=== PATIENT | male | born 1975 | race Caucasian/White ===

== ENCOUNTER 2018-06-01 14:04 | Emergency (ER) | payer BC ==
[2018-06-01] MEDS: NEOMY/BACITR/POLYMYXIN OINT PACKET. TP (14:35)
== END 2018-06-01 14:43 | disposition home or self-care (01) ==
LOC: ER 14:04
DX: S91.302A Unspecified open wound, left foot, initial encounter (principal); S91.301A Unspecified open wound, right foot, initial encounter; X58.XXXA Exposure to other specified factors, initial encounter; Y93.89 Activity, other specified; Y92.89 Other specified places as the place of occurrence of the external cause; Y99.8 Other external cause status
CPT/HCPCS: 99283

== ENCOUNTER 2018-07-14 08:54 | Emergency (ER) | payer BC ==
[~2018-07-14] VITALS: Ht 180.3 cm; Wt 108.9 kg
[~2018-07-14 08:54] MED LIST: MUPI15CR TP; SULF1TAB24 PO
[2018-07-14 09:05] VITALS: BP 175/98
[2018-07-14] MEDS ORDERED: PRED20TA PO (09:30)
--- NOTE | 2018-07-14 09:31 | PHYS DOC ---
Past Medical History Past Medical History: Hypertension Past Surgical History: No Surgical History Alcohol Use: Rarely Drug Use: None Adult General Chief Complaint Chief Complaint: SKIN RASH/ABSCESS HPI HPI Patient is a 42 year old male who presents to the emergency room with complaints of itchy rash all over his bilateral upper extremities, trunk and back for the last 2 weeks. He denies any new medications, detergents, perfumes, body washes, or foods. He states that the only thing that was done differently is that he mowed a friend's yard. Pt denies any shortness of breath, wheezing, or difficulty breathing. Pt states he has not taken any medication or applied any topical medications for relief of his symptoms. Pt denies any recent travel. Review of Systems Review of Systems Constitutional: Denies fever or chills [] Eyes: Denies change in visual acuity, redness, or eye pain [] HENT: Denies nasal congestion or sore throat [] Respiratory: Denies cough, wheezing, or shortness of breath [] GI: Denies abdominal pain, nausea, or vomiting Integument: reports rash all over trunk, back, and upper extremities that is itchy Neurologic: Denies headache, focal weakness or sensory changes [] All other systems were reviewed and found to be within normal limits, except as documented in this note. Allergies Allergies Allergies Coded Allergies Type Severity Reaction Last Updated Verified No Known Drug Allergies 06/01/18 No Physical Exam Physical Exam Constitutional: Well developed, well nourished, no acute distress, non-toxic appearance. [] HENT: Normocephalic, atraumatic, bilateral external ears normal, oropharynx moist, no oral exudates, nose normal. [] Eyes: PERRLA, conjunctiva normal, no discharge. [] Neck: Normal range of motion, no tenderness, supple, no stridor. [] Cardiovascular:Heart rate regular rhythm, no murmur [] Lungs & Thorax: Bilateral breath sounds clear to auscultation [] Skin: Warm, dry, scattered red, maculopapular rash noted to bilateral upper extremities, chest, abdomen, and back consistent with contact dermatitis. Extremities: No cyanosis, no clubbing, ROM intact Neurologic: Alert and oriented X 3, normal motor function, normal sensory function, no focal deficits noted. [] Psychologic: Affect normal, judgement normal, mood normal. [] Current Patient Data Vital Signs Vital Signs Date Time Temp Pulse Resp B/P (MAP) Pulse Ox O2 Delivery O2 Flow Rate FiO2 07/14/18 09:05 97.7 92 16 175/98 (123) 98 Room Air 97.7 EKG EKG [] Radiology/Procedures Radiology/Procedures [] Course & Med Decision Making Course & Med Decision Making Pertinent Labs and Imaging studies reviewed. (See chart for details) Contact dermatitis, prescription for prednisone taper written. Patient verbalized an understanding of home care, medications, follow-up, and return to ED instructions and was in agreement with the plan of care. [] Dragon Disclaimer Dragon Disclaimer This electronic medical record was generated, in whole or in part, using a voice recognition dictation system. Departure Departure Impression: Primary Impression: Contact dermatitis Disposition: HOME, SELF-CARE Condition: STABLE Referrals: NO PCP (PCP) Patient Instructions: Contact Dermatitis, [id number] Additional Instructions: Fill prescription and use as directed. Recommend [id number] Benadryl and [id number] Benadryl itch relief cream or calamine lotion for relief of itching. Follow up with your primary care doctor in 1-2 days, return to the ER if symptoms worsen. Scripts Prednisone (PREDNISONE) 20 Mg Tablet 1 TAB PO DAILY, #15 TAB take 2 tabs x3 days, then 1.5 tabs x3 days, then 1 tab x3 days, then 0.5 tabs x3 days. Prov: ORLY LYNNE APRN 07/14/18 Problem Qualifiers Primary Impression: Contact dermatitis Contact dermatitis type: unspecified Contact dermatitis trigger: unspecified trigger Qualified Codes: L25.9 - Unspecified contact dermatitis, unspecified cause ORLY LYNNE APRN Jul 14, 2018 09:31
== END 2018-07-14 09:35 | disposition home or self-care (01) ==
LOC: ER 08:54
DX: L25.9 Unspecified contact dermatitis, unspecified cause (principal); I10 Essential (primary) hypertension
CPT/HCPCS: 99283

== ENCOUNTER 2019-09-01 09:22 | Emergency (ER) | payer BC ==
[~2019-09-01] VITALS: Ht 180.3 cm; Wt 130.2 kg
[~2019-09-01 09:22] MED LIST changes: +PRED20TA PO
[2019-09-01] MEDS ORDERED: DIPHTH,PERTUSS(ACELL),TET TOX 0.5 ML DISP.SYRIN. VAX IM ONE (10:30)
[2019-09-01] MEDS ORDERED: cefTRIAXone IM 1 GM VIAL IM ONE (10:30)
[2019-09-01] MEDS ORDERED: HYDROcodone/APAP 5/325MG 1 TAB TABLET PO ONE (10:30)
[2019-09-01] MEDS ORDERED: LIDOCAINE 1% PF 2 ML VIAL. INJ ONE (10:30)
[2019-09-01 11:00] VITALS: BP 156/95
--- NOTE | 2019-09-01 11:01 | PHYS DOC ---
Past Medical History Past Medical History: Hypertension Past Surgical History: No Surgical History Alcohol Use: Rarely Drug Use: None Adult General Chief Complaint Chief Complaint: BLISTER/COLD SORE HPI HPI Patient is a 43 year old male with history of hypertension who presents to the ED today complaining of infected wounds to bilateral lower extremities. Patient states that began as an infection in between his toes, he states that progressed into wounds. Patient denies any fever. Denies any personal history of diabetes. Review of Systems Review of Systems Constitutional: Denies fever or chills [] Eyes: Denies change in visual acuity, redness, or eye pain [] HENT: Denies nasal congestion or sore throat [] Respiratory: Denies cough or shortness of breath [] Cardiovascular: No additional information not addressed in HPI [] GI: Denies abdominal pain, nausea, vomiting, bloody stools or diarrhea [] : Denies dysuria or hematuria [] Musculoskeletal: Denies back pain or joint pain [] Integument: Reports wounds to bilateral lower extremities. Neurologic: Denies headache, focal weakness or sensory changes [] Endocrine: Denies polyuria or polydipsia [] All other systems were reviewed and found to be within normal limits, except as documented in this note. Current Medications Current Medications Current Medications Medications (Trade) Dose Ordered Sig/Jorge A Start Time Stop Time Status Last Admin Dose Admin Acetaminophen/ Hydrocodone Bitart (Lortab 5/325) 2 tab 1X ONCE 09/01/19 10:30 09/01/19 10:31 DC Ceftriaxone Sodium (Rocephin Im) 1 gm 1X ONCE 09/01/19 10:30 09/01/19 10:31 DC 09/01/19 10:38 1 GM Diphtheria/ Tetanus/Acell Pertussis (Boostrix) 0.5 ml ONCE ONCE 09/01/19 10:30 09/01/19 10:31 DC 09/01/19 10:33 0.5 ML Lidocaine HCl (Xylocaine-Mpf 1% 2ml Vial) 2 ml 1X ONCE 09/01/19 10:30 09/01/19 10:31 DC 09/01/19 10:38 2 ML Allergies Allergies Allergies Coded Allergies Type Severity Reaction Last Updated Verified No Known Drug Allergies 06/01/18 No Physical Exam Physical Exam Constitutional: Well developed, well nourished, no acute distress, non-toxic appearance. [] HENT: Normocephalic, atraumatic, bilateral external ears normal, oropharynx moist, no oral exudates, nose normal. [] Eyes: PERRLA, EOMI, conjunctiva normal, no discharge. [] Neck: Normal range of motion, no tenderness, supple, no stridor. [] Cardiovascular:Heart rate regular rhythm, no murmur [] Lungs & Thorax: Bilateral breath sounds clear to auscultation [] Abdomen: Bowel sounds normal, soft, no tenderness, no masses, no pulsatile masses. [] Skin: Poor feet hygiene noted, areas in between the toes overweight and macerated consistent with fungal infection. Patient also has a couple open wounds on the left foot as well as the right foot that appears to be cellulitis, no abscess formation. There is also on open wound approximately 0.5 x 0.5 cm with surrounding 3 cm of cellulitis on the right inner lower leg. +2 bilateral pedal pulses. Full range of motion bilateral lower extremities. Cap refill less than 2 seconds bilateral toes. Back: No tenderness, no CVA tenderness. [] Extremities: No tenderness, no cyanosis, no clubbing, ROM intact, no edema. [] Neurologic: Alert and oriented X 3, normal motor function, normal sensory function, no focal deficits noted. [] Psychologic: Affect normal, judgement normal, mood normal. [] Current Patient Data Vital Signs Vital Signs Date Time Temp Pulse Resp B/P (MAP) Pulse Ox O2 Delivery O2 Flow Rate FiO2 09/01/ 09:30 97.9 95 21 167/96 (119) Room Air 97.0 97.9 EKG EKG [] Radiology/Procedures Radiology/Procedures [] Course & Med Decision Making Course & Med Decision Making Pertinent Labs and Imaging studies reviewed. (See chart for details) This is a 43-year-old male patient who presents to the ED today with a fungal infection on bilateral feet as well as a couple areas of cellulitis. Tetanus was updated. Given Rocephin 1 g in the ED. Discharged with cephalexin and Bactrim. Also given prescription for nystatin powder to use between the toes. Emphasis to this patient the importance of good feet hygiene. Follow-up with primary care doctor in one week. Dragon Disclaimer Dragon Disclaimer This electronic medical record was generated, in whole or in part, using a voice recognition dictation system. Departure Departure Impression: Primary Impression: Athlete's foot on left Additional Impressions: Athlete's foot on right Cellulitis of both lower extremities Disposition: 01 HOME, SELF-CARE Condition: STABLE Referrals: NO PCP (PCP) follow up next week Patient Instructions: Athlete's Foot, [id number], Cellulitis, [id number] Additional Instructions: You were evaluated in the emergency room for cellulitis and fungal infection to your feet. Please maintain good feet hygiene. Try and keep your feet open to air while at home and resting. Take the prescribed antibiotics as well as pain medicines as ordered. Please follow-up with your doctor in the course of next week. Scripts Cephalexin (CEPHALEXIN) 500 Mg Tablet 1 TAB PO QID, #40 TAB Prov: JULIANNA SUTHERLAND APRN 09/01/19 Sulfamethoxazole/Trimethoprim (BACTRIM 400-80 MG TABLET) 1 Each Tablet 1 TAB PO BID for 10 Days, #20 TAB 0 Refills Prov: JULIANNA SUTHERLAND APRN 09/01/19 Nystatin (NYSTATIN) 15 Gm Powder 1 FRANDY TP BID for 7 Days, #1 BOTTLE 1 Refill apply to affected area(s) Prov: JULIANNA SUTHERLAND APRN 09/01/19 Problem Qualifiers JULIANNA SUTHERLAND APRN Sep 01, 2019 11:01
[2019-09-01] MEDS ORDERED: SULF1TAB23 PO (11:04)
[2019-09-01] MEDS ORDERED: NYST15PO9 TP (11:04)
[2019-09-01] MEDS ORDERED: HYDR-3164 PO (11:04)
[2019-09-01] MEDS ORDERED: CEPH500T PO (11:04)
== END 2019-09-01 11:40 | disposition home or self-care (01) ==
LOC: ER 09:22
DX: L03.116 Cellulitis of left lower limb (principal); L03.115 Cellulitis of right lower limb; B35.3 Tinea pedis; I10 Essential (primary) hypertension
CPT/HCPCS: 90471; 90715; 96372; 99284; J0696

== ENCOUNTER 2019-12-07 20:34 | Emergency (ER) | payer BC ==
[~2019-12-07] VITALS: Ht 180.3 cm; Wt 115.0 kg
[~2019-12-07 20:34] MED LIST changes: +CEPH500T PO; +HYDR-3164 PO; +NYST15PO9 TP; +SULF1TAB23 PO
[2019-12-07 20:49] VITALS: BP 163/97
[2019-12-07] MEDS ORDERED: PENI500T PO (21:05)
--- NOTE | 2019-12-07 21:09 | PHYS DOC ---
Past Medical History Past Medical History: Hypertension Past Surgical History: No Surgical History Alcohol Use: Rarely Drug Use: None Adult General Chief Complaint Chief Complaint: DENTAL PROBLEM HPI HPI Patient is a 44 year old male who presents with has a dental caries of which she sees a dentist for. He awoke is evening before work and noticed the right side of his face was swollen. Patient has dental pain to the right upper front teeth. Patient states that his dentist has been stating that he needs to have teeth pulled but he just hadn't done it yet. Patient currently states he has no pain. Review of Systems Review of Systems HENT: Denies nasal congestion or sore throat. Dental abscess.[] All other systems were reviewed and found to be within normal limits, except as documented in this note. Allergies Allergies Allergies Coded Allergies Type Severity Reaction Last Updated Verified No Known Drug Allergies 06/01/18 No Physical Exam Physical Exam Constitutional: Well developed, well nourished, no acute distress, non-toxic appearance. [] HENT: Normocephalic, atraumatic, bilateral external ears normal, oropharynx moist, no oral exudates, nose normal. Dental caries, upper gumline redness, Broken teeth. Right sided facial swelling. [] Eyes: PERRLA, EOMI, conjunctiva normal, no discharge. [] Neck: Normal range of motion, no tenderness, supple, no stridor. [] Cardiovascular:Heart rate regular rhythm, no murmur [] Lungs & Thorax: Bilateral breath sounds clear to auscultation [] Abdomen: Bowel sounds normal, soft, no tenderness, no masses, no pulsatile masses. [] Skin: Warm, dry, no erythema, no rash. [] Back: No tenderness, no CVA tenderness. [] Extremities: No tenderness, no cyanosis, no clubbing, ROM intact, no edema. [] Neurologic: Alert and oriented X 3, normal motor function, normal sensory function, no focal deficits noted. [] Psychologic: Affect normal, judgement normal, mood normal. [] EKG EKG [] Radiology/Procedures Radiology/Procedures [] Course & Med Decision Making Course & Med Decision Making Afebrile. Patient denies nausea, vomiting, body aches, headache, dizziness. Patient has 1+ right sided facial swelling. No cellulitis or redness seen. Patient's perforant gum line is reddened and patient has many rotten and broken teeth. Alert and oriented. Speaks in full clear sentences. Ambulatory with a steady gait. Skin pink warm and dry. Patient states that he will follow-up with a dentist as soon as possible. Patient to take ibuprofen for any kind of pain. Dragon Disclaimer Dragon Disclaimer This electronic medical record was generated, in whole or in part, using a voice recognition dictation system. Departure Departure Impression: Primary Impression: Dental abscess Disposition: HOME, SELF-CARE Condition: STABLE Referrals: NO PCP (PCP) Patient Instructions: Dental Abscess Additional Instructions: Follow up with dentist. Use Ibuprofen for pain. Take medication as prescribed. Scripts Penicillin V Potassium (PENICILLIN V POTASSIUM) 500 Mg Tablet 1 TAB PO QID, #40 TAB Prov: JENNIFER HICKS APRN 12/07/19 JENNIFER HICKS APRN Dec 07, 2019 21:09
== END 2019-12-07 21:16 | disposition home or self-care (01) ==
LOC: ER 20:34
DX: K04.7 Periapical abscess without sinus (principal); K02.9 Dental caries, unspecified; R60.9 Edema, unspecified; I10 Essential (primary) hypertension
CPT/HCPCS: 99283